=== PATIENT | female | born 1985 | race Hispanic/Latino ===

== ENCOUNTER 2017-11-14 11:13 | Day surgery (SDC) | payer MEDICAID, OTHER, SELFPAY ==
--- NOTE | 2017-11-14 11:29 | PDOC.EVN ---
Event Note - Event Note Event Note: HISTORY AND PHYSICAN ED Trauma Bed 1 time of eval at bedside: 1110 [facility] Patient Residents aware HPI: I arrived to ED bed 1 with Brisa (our RN) and Jony (our DINKEY ENGINE FIRER/FIREMAN) to see that patient for "delivery". She is a 32 yo H with EDC 01/04/18 at around 33 weeks by dates. Here for pelvic pain, no VB, no LOF Review of systems: on and of contractions, no GDM HX, no PIH Hx. States CTX every 7 minutes for couple hours Meds: none Allergies: none Surgeries: none OBHX: X5 at term PHYSICAL: NAD A&A X3 Ut gravid Cervix by me: /3 Bedside sono in process Assessment and plan: Threatened PTL... I checked cervix already so no FFN We will: 1. get sono for EGA 2. NICU aware 3. IVFs 4. Celestone 5. Monitors 6. Dr Cristian Rushing with me at bedside
--- NOTE | 2017-11-14 11:35 | PDOC.EVN ---
Event Note - Event Note Event Note: EFW by sono 2056 grams, sephalic, good cardiac Motion. RUDI 8.1 To L&D
--- NOTE | 2017-11-14 12:06 | PDOC.EVN ---
Event Note - Event Note Event Note: Patient now in L&D L&D note: OBGYN Faculty: LIANNE Cordova reviewed with Dr Valero. FAVIOLA Astudillo..treated with neg CESILIA Cervical length sono not performed as effacement called 50% by my exam already. Monitor for now. Celestone if evidence progressive cervical change or persistent regular contractions.
[2017-11-14] MEDS: Lactated Ringer's 1,000 ML IV SCH ×2 (12:09→13:00)
[2017-11-14 12:41] VITALS: BMI 29.5
[2017-11-14 13:09] VITALS: BP 123/77; TEMP 99.1
[2017-11-14 13:49] LABS: Bilirubin Negative (Negative); Blood, Urine Negative (Negative); Clarity CLEAR (Clear); Glucose, Urine (Dipstick) Negative (Negative); Leukocyte Negative (Negative); Nitrite Negative (Negative); Protein, Urine (Dipstick) Negative (Neg-Trace); Specific Gravity, Urine 1.006 (1.002-1.036); Urobilinogen 0.2 mg/dL (0.2-1.0)
[2017-11-14 13:51] LABS: Bacteria/HPF None Seen HPF (None Seen); Hyaline Casts/LPF 0-3 HYALINE CAST LPF (0-3 Hyaline); RBC/HPF None Seen HPF (0-3); Squamous Epithelial 0-3 HPF (0-3); WBC/HPF None Seen HPF (0-3)
--- NOTE | 2017-11-14 14:11 | PDOC.EVN ---
Event Note - Event Note Event Note: OBGYN L&D note: UA clear. Dr Valero to recheck cervix now still with contractions every 5 minutes or so despite IVF hydration
[2017-11-14] MEDS ORDERED: Butorphanol Tartrate 1 MG/ML VIAL SLOW IVP PRN (14:15)
[2017-11-14] MEDS ORDERED: Promethazine HCl 25 MG/ML VIAL IM/IV PRN (14:16)
--- NOTE | 2017-11-14 16:14 | PDOC.EVN ---
Event Note - Event Note Event Note: OBGYN Faculty DISCHARGE NOTE Location: L&D Patient was admitted to L&D at approx 1130 for suspected labor at 33weeks by dates. She is a , seen at the clinic, with lower pelvic pressure. Denies LOF, VB, CAO. Good FM. Armenian speaking only. I evaluated the patient in the ED along with our cleaning staff supervisor. Cervix was 1/50/-3 by my check. Bedside sono by department revealed S=D with EFW of 2000grams, RUDI 8. No evidence active labor noted in ED. We observed her in L&D for 5 hours with no cervical progression. [place] revealed less contractions after IVFs and sedation. I performed a final cerevical check at 1610 and cervix still posterior, 1 50/-3. UA was negative. FFN not sent as cervix checked first in ED to r/o eminent delivery. Steroids not given as no real evidence of labor. FHTs reactive, cat 1 Vitals stable DX: discomforts of Threatened labor
--- NOTE | 2017-11-14 17:27 | ULT ---
OB ULTRASOUND: 11/14/17 HISTORY: Premature labor at 33 weeks. Evaluate amniotic fluid volume and weight as well as present ation. FINDINGS: There is a single intrauterine gestation in cephalic presentation. Cardiac doppler demonstrates feta l heart tones with a heart rate of 135 beats per minute. There is significant shadowing from th e head which limits evaluation of the head as well as lower uterine segment. Cervix is un able to be evaluated on this exam. The placenta is located posteriorly and fundally. Given significan t shadowing in the lower uterine segment, leading edge of the placenta is not well imaged but given t hat the placenta is located predominantly within the fundus of the uterus, there is no definite findi ngs to suggest placenta previa. The amniotic fluid volume is at the lower limits of normal with an am niotic fluid index of 8.1 cm. MEASUREMENTS: The head is not well visualized to evaluate for head circumference and biparietal diameter. However, measurements are as follows: Biparietal diameter 8.43 cm, 34 weeks. Head circumference 29.99 cm, 33 weeks, 1 day. Abdominal circumference 28.62 cm, 32 weeks, 4 days. Femur length 6.32 cm, 32 weeks, 5 days. Estimated gestational age by ultrasound is 33 weeks with an JAS on 01/02/18. Gestational age by last m enstrual period is 32 weeks, 5 days. Estimated weight by ultrasound is 2056 grams (4 lb. 9 oz.). This represents 43 percentile for f etal weight. This was examination was not performed for evaluation of the anatomical structures. IMPRESSION: 1. Limited evaluation of the lower uterine segment due to gestational age and shadowing from fet al head. However, there is a single intrauterine gestation in cephalic presentation with heart tones documented. 2. Estimated gestational age by ultrasound is 33 weeks with an JAS on 01/02/18. head is not well seen for more accurate measurements. 3. Estimated weight by ultrasound is 2056 grams (4 lb., 9 oz.). 4. Amniotic fluid index is 8.1 cm. POS: [facility]
[2017-11-15] MEDS ORDERED: Prenatal Vitamin 1 TAB PO SCH (09:00)
== END 2017-11-14 18:00 | disposition home or self-care (01) ==
LOC: L&D/OP 11:13 → ER/OP 18:00
PROVIDERS: ATTEND Obstetrics & Gynecology
DX: O60.03 Preterm labor without delivery, third trimester (principal); O99.013 Anemia complicating pregnancy, third trimester; Z3A.32 32 weeks gestation of pregnancy
CPT/HCPCS: 51701; 76815; 81001; 96360; 96361; 96372; 96375; 99284; J0595; J2550

== ENCOUNTER 2017-12-21 14:03 | Day surgery (SDC) | payer OTHER ==
[2017-12-21 14:41] VITALS: BP 117/58; TEMP 98.7
--- NOTE | 2017-12-21 15:40 | PDOC.EVN ---
Event Note - Event Note Event Note: Faculty H&P Time of encounter 1520 Patient of the [facility] [place] patient first assessed by Dr Cristian Valero Here for suspected contractions at 38 weeks HPI: 32 yo at 38 weeks with EDC of 01/04/18. She was seen earlier this in the ED for suspected "complete dilation" but was not, and was sent home. She is now 38 weeks. Stats contractions every 15 minutes, but no LOF, no ROM, no VB, no trauma. Good FM Review of Systems: complete ROS completed and negative except for HPI OB Hx: ..Elab 1 Sab1 All No CS Surgical: appy Allergies: none Physical: BP 116/70 pulse 90s NAD Ut NT S=D Cervix: 3/80/-2 Monitoring: Cat 1 /reactive, baseline [place]: irregular every 6-10 minutes Assessment/plan: 1. 1. Latent labor 2. Grand multiparous 3. Recheck in 2 hours 4. OK for ambulation
--- NOTE | 2017-12-21 16:10 | PDOC.LDHP ---
Labor and Delivery H&P Chief complaint: contractions HPI: 32 yo @ 32.5 wks by 22.1wk with EDC 01/04/2018 who presents with contractions every 9 minutes since this morning at 0600. Denies VB, LOF, vaginal discharge. Endorses good movement. Current gestational age (weeks): 38 Due date: 01/04/18 Grav: 8 Para: 5 ([id number]) OB History Details: US hx: 2nd Tri US wnl OB hx: 5 term NSVDs, no hx of deliveries 2 miscarriages Current complications: other (Anemia of , hx of chlamydia with CESILIA 10/2017, and glucose intolerance) Abnormal US findings: No (43% by [place] 3T US) Past Medical History: Anemia of , hx of chlamydia with CESILIA 10/2017, and an abnormal 3 hr GTT. Current medications: none Previous surgical history: appendectomy Allergies/Adverse Reactions: Allergies Allergy/AdvReac Type Severity Reaction Status Date / Time No Known Allergies Allergy Verified 03/01/13 18:21 Social history: none - Physical Exam Vital signs reviewed and normal: yes General: NAD, resting, breathing through contractions Heart: RRR Lungs: CTAB Abdomen: gravid Extremeties: no edema FHT: category 1 [place] contractions every: 6-9 - Vaginal Exam cm dilated: 3 Effacement: 90% Station: -2 - OB Labs Blood type: O RH: positive Antibody Screen: negative HIV: negative RPR: negative HEPSAg: negative 1 hour GCT: positive (142) GBS: negative Rubella: immune Additional Labs: chlamydia negative 10/20/2017 gonorrhea 10/20/2017 urine cx: negative 10/20/2017 H/H 9.7/29.8 10/20/2017 - Assessment 32 yo @ 32.5 wks by 22.1wk with EDC 01/04/2018 who presents with contractions, in latent labor, admitted to obs to assess for cervical change. 1. sIUP, Latent labor 2. Grandmultiparous 3. Anemia of 4. Glucose intolerance 5. Late to PNC 6. Hx of chlamydia, CESILIA 10/2017 Plan: -Observe in L&D for 2-3 hours. Reassess for cervical change after 2-3 hours. Pt can ambulate as tolerated. Will continue to monitor on NST. -If no cervical change, will discharge pt in latent labor with labor precautions
--- NOTE | 2017-12-21 16:45 | PDOC.EVN ---
Event Note - Event Note Event Note: 32 yo @ 38wks by 22.1wk US with EDC 01/04/2018 who presented with contractions, now without cervical change after 2 hours of observation. NST reactive, not currently jordy regularly. Labor precautions given. Pt has apt at [facility] next week on 12/26. Okay to discharge. Dr. Krause at bedside during evaluation. <Haritha Nelson - Last Filed: 12/21/17 16:45> - Event Note Event Note: Faculty note: seen at bedside with Dr Valero. Cleared for outpatient follow up. NST reactive. <Vance Krause - Last Filed: 12/21/17 16:56>
== END 2017-12-21 17:01 | disposition home or self-care (01) ==
LOC: L&D/OP 14:03
PROVIDERS: ATTEND Family Medicine
DX: O47.1 False labor at or after 37 completed weeks of gestation (principal); Z3A.38 38 weeks gestation of pregnancy
CPT/HCPCS: 99283

== ENCOUNTER 2018-01-05 12:26 | Inpatient (IN) | payer OTHER, SELFPAY ==
[~2018-01-05 12:26] MED LIST: Lidocaine 2% PF Inj 2 ML VIAL ONE; Terbutaline Sulfate 1 MG/ML VIAL ONE
[2018-01-05] MEDS: Lactated Ringer's 1,000 ML IV SCH ×3 (13:00→18:10)
[2018-01-05 13:19] VITALS: BMI 27.9
--- NOTE | 2018-01-05 13:50 | PDOC.LDHP ---
Labor and Delivery H&P Chief complaint: contractions HPI: 32 y/o at 40w1d here with ctx. Denies Vb, LOF, or decreased FM. Denies other complaints. ROS neg for HEENT, cv, pulm, gi, gu, neuro, psych, skin, musculoskeletal or constitutional symptoms other than mentioned above. OB History Details: 5 prior SVDs Current complications: none Past Medical History: None Previous surgical history: none Allergies/Adverse Reactions: Allergies Allergy/AdvReac Type Severity Reaction Status Date / Time No Known Allergies Allergy Verified 03/01/13 18:21 Social history: none - Physical Exam Vital signs reviewed and normal: yes General: NAD, resting Lungs: nonlabored breathing Abdomen: gravid Extremeties: no edema FHT: category 2 (140s, mod variability, + accels, late decel on presentation, now resolved) [place] contractions every: 5 - Vaginal Exam cm dilated: 4 Effacement: 50% Station: -2 - OB Labs Blood type: O RH: positive Antibody Screen: negative HIV: negative RPR: negative HEPSAg: negative 1 hour GCT: negative GBS: negative Rubella: non-immune - Assessment L&D Assessment: term patient in labor - Plan Plan: admit to L&D, labor augmentation if indicated, informed consent obtained, anesthesia consult for pain management (if desired) -: Patient with late decels upon presentation but have improved with resuscitation. As patient is term, will admit for delivery with augmentation as needed. Anticipate .
--- NOTE | 2018-01-05 13:54 | PDOC.LDPN ---
Labor & Delivery Progress Note - Subjective Subjective: painful contractions - Objective Vital signs reviewed and normal: yes General: NAD, breathing through contractions Uterine fundus: non tender FHT: category 1 AROM: clear fluid Plan: continue plan of care
[2018-01-05] MEDS ORDERED: Promethazine HCl 25 MG/ML VIAL IM PRN ×2 (14:10→18:44)
[2018-01-05] MEDS ORDERED: Ondansetron HCl/PF 4 MG/2 ML Vial IVP PRN ×2 (14:10→18:44)
[2018-01-05] MEDS ORDERED: Lidocaine 1% (PF) 30 ML VIAL SC PRN (14:10)
[2018-01-05 15:17] LABS: Hemoglobin 10.6 g/dL (12.0-16.0); Mean Corpuscular HGB CONC 33.6 g/dL (32.0-36.0); Mean Corpuscular Hemoglobin 25.4 pg (27.0-31.0); Mean Corpuscular Volume 75.6 fL (78.0-98.0); Mean Platelet Volume 10.3 fL (7.4-10.4); Platelet Count 184 thou/uL (130-400); Red Blood Cell (RBC) Count 4.17 mill/uL (4.20-5.40)
[2018-01-05 15:58] LABS: Syphilis Antibody Nonreactive (Nonreactive); Syphilis Antibody Index 0.04 S/CO (<1.00 Non-Reactive)
[2018-01-05 15:59] LABS: HBSAg Index 0.18 S/CO (0-0.99); Hep B Surf Ag Non-Reactive S/CO (NonReactive)
[2018-01-05] MEDS ORDERED: Bupivacaine 0.5% 20 ML, fentaNYL Citrate/PF 400 MCG in Sodium Chloride 0.9% 72 ML EPIDURAL SCH (16:00)
[2018-01-05] MEDS ORDERED: NS w/ Oxytocin 10 units 500 ML IV SCH (17:15)
[2018-01-05] MEDS ORDERED: ePHEDrine/0.9% NaCl/PF SYRINGE 50 mg/10 ml SLOW IVP PRN (18:44)
[2018-01-05] MEDS ORDERED: Eucerin (Mineral Oil/Petrolatum,White) 30 gm Jar TOP PRN (18:44)
[2018-01-05] MEDS ORDERED: Naloxone HCl 0.4 mg/ml Vial IVP PRN ×2 (18:44)
[2018-01-05] MEDS ORDERED: diphenhydrAMINE 50 MG/ML VIAL IVP PRN (18:44)
[2018-01-05] MEDS ORDERED: Lactated Ringer's 500 ML IV PRN (18:44)
[2018-01-05] MEDS ORDERED: Acetaminophen 325 MG TAB PO PRN (18:44)
[2018-01-05] MEDS ORDERED: Communication Order-Pharmacy FS SCH (18:45)
[2018-01-05] MEDS ORDERED: fentaNYL Citrate/PF 400 MCG, Bupivacaine 0.5% 20 ML in Sodium Chloride 0.9% 72 ML EPIDURAL SCH (18:45)
--- NOTE | 2018-01-05 19:21 | PDOC.LDPN ---
Labor & Delivery Progress Note - Subjective Subjective: comfortable, no concerns - Objective Vital signs reviewed and normal: yes General: NAD, breathing through contractions Uterine fundus: non tender Dilation: 6 Effacement: 75% Station: -1 FHT: category 1 (baseline 140, moderate variability, accelx1, no decels ) [place] contractions every: 2-3 mins Procedures: epidural placed AROM: clear fluid - Assessment (1) Normal Code(s): Z34.90 - ENCNTR FOR SUPRVSN OF NORMAL , UNSP, UNSP TRIMESTER Current Visit: No Status: Acute Comment: epidural providing pain control. Progressing without concern, continue pitocin per protocol. Plan: continue plan of care (recheck in 2 hours )
[2018-01-05] MEDS ORDERED: Misoprostol 200 MCG TAB ONE ×2 (20:20→20:51)
[2018-01-05] MEDS ORDERED: Methylergonovine 0.2 MG/ML VIAL ONE (20:21)
[2018-01-05] MEDS ORDERED: Carboprost 250 MCG/ML AMP ONE (20:22)
[2018-01-05] MEDS: NS / Oxytocin 40 units/1000ml 1,000 ML IV PRN ×2 (20:40→21:54)
[2018-01-05] MEDS: Misoprostol 100 MCG TAB ONE ×3 (20:41→20:43)
[2018-01-05] MEDS ORDERED: Misoprostol 100 MCG TAB ONE (20:51)
[2018-01-05] MEDS ORDERED: Bisacodyl 10 MG SUPP PR PRN (22:59)
[2018-01-05] MEDS ORDERED: Milk Of Magnesia 30 ML UDCUP PO PRN (22:59)
[2018-01-05] MEDS ORDERED: Misoprostol 200 MCG TAB VAG PRN (22:59)
[2018-01-05] MEDS ORDERED: NS / Oxytocin 40 units/1000ml 1,000 ML IV SCH (22:59)
[2018-01-05] MEDS ORDERED: Ibuprofen 800 MG TAB PO SCH (23:15)
[2018-01-05] MEDS ORDERED: Docusate Calcium (SURFAK) 240 MG CAP PO SCH (23:15)
--- NOTE | 2018-01-06 07:22 | PDOC.PP ---
Post Progress Note Post Day #: 1 Subjective: Denies pain. Breast feeding well. no concerns. PO intake tolerated: yes Flatus: no Ambulation: yes Vital Signs (12 hours) Temp Pulse Resp BP 01/06/18 04:08 97.9 F 69 18 100/56 L 01/06/18 00:40 98.8 F 87 18 100/50 L 01/05/18 23:50 99.5 F 95 18 112/59 L 01/05/18 22:51 99.3 F 73 18 114/62 01/05/18 20:00 98.4 F 86 20 Weight Weight 64.864 kg - Physical Examination General: NAD Cardiovascular: no m/r/g, RRR Respiratory: clear to auscultation bilaterally, non-labored breathing Abdominal: + bowel sounds, lochia, appropriately TTP Fundus firm & at: 2 cm below umbilicus Extremities: negative homans (B) Perineum: mild edema Neurological: no gross focal deficits Psychiatric: A&Ox3, normal affect Result Diagrams: 01/05/18 13:17 Additional Labs: Post Labs Blood Type O POSITIVE 01/05/18 13:17 Hep Bs Antigen Non-Reactive S/CO (NonReactive) 01/05/18 13:17 (1) 39 weeks gestation of Code(s): Z3A.39 - 39 WEEKS GESTATION OF Status: Acute Comment: 32 yo delivered @ 40.1 wk via complicated by shoulder dystocia. VSS. pain controlled. expectant management at this time. likely d/c tomorrow morning. Care discussed with Dr. Edouard (2) Shoulder dystocia during labor and delivery, delivered Code(s): O66.0 - OBSTRUCTED LABOR DUE TO SHOULDER DYSTOCIA Status: Acute <Yohan Bocanegra - Last Filed: 01/06/18 07:20> Vital Signs (12 hours) Temp Pulse Resp BP Pulse Ox 01/07/18 09:06 97.5 F L 67 16 108/59 L 95 01/07/18 08:00 98.5 F 77 16 Weight Weight 143 lb Result Diagrams: 01/05/18 13:17 Additional Labs: Post Labs Blood Type O POSITIVE 01/05/18 13:17 Hep Bs Antigen Non-Reactive S/CO (NonReactive) 01/05/18 13:17 <Krupa Edouard - Last Filed: 01/07/18 10:56> Attending Addendum - Attending Addendum Date/Time: 01/07/18 9400 I personally evaluated the patient and discussed the management with Dr. Bocanegra. I agree with the History, Examination, Assessment and Plan documented above. <Krupa Edouard - Last Filed: 01/07/18 10:56>
[2018-01-06] MEDS ORDERED: Adacel (T-DAP) 0.5 ML VIAL IM ONE (09:00)
[2018-01-06] MEDS: Ferrous Sulfate 325 MG TAB PO SCH ×2 (09:48→18:46)
[2018-01-06] MEDS: Docusate Calcium (SURFAK) 240 MG CAP PO SCH ×2 (09:49→20:37)
[2018-01-06] MEDS: Ibuprofen 800 MG TAB PO SCH ×3 (14:23→20:37)
[2018-01-06] MEDS: Acetaminophen 500 MG TAB PO PRN (22:19)
[2018-01-07] MEDS: Acetaminophen 500 MG TAB PO PRN (04:30)
[2018-01-07] MEDS: Ibuprofen 800 MG TAB PO SCH (04:31)
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
--- NOTE | 2018-01-07 07:27 | PDOC.PP ---
Post Progress Note Post Day #: 2 Subjective: doing well. would like to go home. no concerns. PO intake tolerated: yes Flatus: yes Ambulation: yes Vital Signs (12 hours) Temp Pulse Resp BP 01/06/18 20:00 98.5 F 77 16 107/59 L Weight Weight 64.864 kg - Physical Examination General: NAD Cardiovascular: no m/r/g, RRR Respiratory: clear to auscultation bilaterally, non-labored breathing Abdominal: + bowel sounds, lochia, no distention, appropriately TTP Extremities: negative homans (B) Neurological: no gross focal deficits Psychiatric: A&Ox3, normal affect Result Diagrams: 01/05/18 13:17 Additional Labs: Post Labs Blood Type O POSITIVE 01/05/18 13:17 Hep Bs Antigen Non-Reactive S/CO (NonReactive) 01/05/18 13:17 (1) 39 weeks gestation of Code(s): Z3A.39 - 39 WEEKS GESTATION OF Status: Acute Comment: 32 yo delivered @ 40.1 wk via complicated by shoulder dystocia. VSS. pain controlled. expectant management at this time. likely d/c today. Care discussed with Dr. Oliveira. (2) Shoulder dystocia during labor and delivery, delivered Code(s): O66.0 - OBSTRUCTED LABOR DUE TO SHOULDER DYSTOCIA Status: Acute <Yohan Bocanegra - Last Filed: 01/07/18 07:26> Vital Signs (12 hours) Temp Pulse Resp BP Pulse Ox 01/07/18 09:06 97.5 F L 67 16 108/59 L 95 Weight Weight 143 lb Result Diagrams: 01/05/18 13:17 Additional Labs: Post Labs Blood Type O POSITIVE 01/05/18 13:17 Hep Bs Antigen Non-Reactive S/CO (NonReactive) 01/05/18 13:17 <Fred Oliveira - Last Filed: 01/07/18 20:34> Attending Addendum - Attending Addendum Date/Time: 01/07/182033 I personally evaluated the patient and discussed the management with Dr. Bocanegra I agree with the History, Examination, Assessment and Plan documented above with any addition or exceptions noted below. <Fred Oliveira - Last Filed: 01/07/18 20:34>
[2018-01-07 09:07] VITALS: BP 108/59; TEMP 97.5
[2018-01-07] MEDS: Ferrous Sulfate 325 MG TAB PO SCH (09:20)
[2018-01-07] MEDS: Docusate Calcium (SURFAK) 240 MG CAP PO SCH (09:21)
[2018-01-07] MEDS ORDERED: Measles/Mumps/Rubella 10 MCG/0.5 ML VIAL SC ONE (12:45)
--- NOTE | 2018-01-08 12:49 | DN-2 ---
DELIVERY NOTE DATE OF SERVICE: 01/05/2018 DELIVERING RESIDENTS: Hector Escudero DO and Yohan Bocanegra MD ATTENDING: Krupa Edouard MD PROCEDURE: Normal spontaneous vaginal delivery. ESTIMATED BLOOD LOSS: 300 mL ANESTHESIA: Epidural. INDICATIONS: Ms. Lolita Fuentes is a 32-year-old -0-2-5 at 40.1 weeks, dated by a 22.1 week ultrasound, who presented to Labor and Delivery in spontaneous labor. DELIVERY NOTE: This is a 32-year-old -0-2-5 at 40.1 weeks who delivered a viable male at 2038 hours on 01/05/2018. Following an antepartum course , a vigorous male was delivered over intact perineum in the occiput anterior position. A shoulder dystocia occurred while delivering remainder of the body and was reduced using Wesley maneuver and suprapubic pressure for approximately 30 seconds. No nuchal cord was noted. The cord was cut and clamped and the infant was urgently taken to the resuscitative team. The became vigorous after a few seconds of stimulation. A cord gas segment was obtained. A quantitative blood loss was not performed due to a precipitous delivery of the placenta shortly after the cord gas segment was obtained. Placenta was delivered intact with a 3-vessel cord noted. Fundal massage was performed and fundus was noted to be firm. Lower uterine segment was swept and cleared of clots. The cervix and vagina were inspected and noted to be free of lacerations. went to the nursery in good condition for routine care. Apgars were 8 and 8 at 1 and 5 minutes respectively. The patient tolerated delivery well and went to the unit after routine recovery and care. Dr. Edouard was present for the entire delivery. [facility]
== END 2018-01-07 13:15 | disposition home or self-care (01) | DRG 775 ==
LOC: L&D/OP 12:26 → L&D 13:31 → 3SW 22:51
PROVIDERS: ADMIT Obstetrics & Gynecology; ATTEND Obstetrics & Gynecology
PROC: 10E0XZZ Delivery of Products of Conception, External Approach (ICD-10-PCS; principal; 2018-01-05)
DX: O66.0 Obstructed labor due to shoulder dystocia (principal); Z3A.40 40 weeks gestation of pregnancy; Z37.0 Single live birth; Z91.419 Personal history of unspecified adult abuse
CPT/HCPCS: 51702; 85027; 86780; 86850; 86900; 86901; 87340; 90707; 99285; J2001; J2210; J3010; J3105; J3490; J7050

== ENCOUNTER 2018-04-27 09:17 | Emergency (ER) | payer OTHER, SELFPAY ==
[2018-04-27] MEDS ORDERED: Dexamethasone 4 mg/ml Vial ONE (09:32)
[2018-04-27] MEDS ORDERED: Sodium Chloride For Inhalation 0.9% 3 ML NEB ONE ×2 (09:41→09:48)
[2018-04-27 09:49] LABS: #Eosinphils 0.1 thou/uL (0.0-0.7); #Lymphocytes 1.6 thou/uL (1.20-3.40); #Monocytes 0.6 thou/uL (0.11-0.59); #Neutrophils 4.2 thou/uL (1.40-6.50); %Basophils 0.2 % (0.0-1.0); %Eosinophils 0.9 % (0.0-10.0); %Lymphocytes 24.3 % (21.0-51.0); %Monocytes 8.8 % (0.0-10.0); %Neutrophils 65.8 % (42.0-75.0); Hemoglobin 14.4 g/dL (12.0-16.0); Mean Corpuscular HGB CONC 33.7 g/dL (32.0-36.0); Mean Corpuscular Hemoglobin 28.3 pg (27.0-31.0); Mean Platelet Volume 9.1 fL (7.4-10.4); Platelet Count 259 thou/uL (130-400); RBC Distribution Width 14.1 % (11.5-14.5); Red Blood Cell (RBC) Count 5.11 mill/uL (4.20-5.40); White Blood Cell (WBC) Count 6.4 thou/uL (4.8-10.8)
[2018-04-27 09:57] LABS: BHCG - Serum Negative (NEGATIVE); Pregs Control Background? CLEAR/WHITE (CLR/WHITE); Pregs Control Bar Appear? YES (CONTROL BAR)
[2018-04-27 10:11] LABS: ALT (SGPT) 44 U/L (8-55); AST (SGOT) 33 U/L (5-34); Albumin 4.5 g/dL (3.5-5.0); Alkaline Phosphatase 159 U/L (40-150); Anion Gap 15 mmol/L (10-20); BUN (Urea Nitrogen) 12 mg/dL (7.0-18.7); Bilirubin, Total 0.4 mg/dL (0.2-1.2); Calc. Creatinine Clearance 0 mL/min (70-130); Calcium 9.6 mg/dL (7.8-10.44); Carbon Dioxide 19 mmol/L (22-29); Chloride 110 mmol/L (98-107); Estimated GFR-MDRD 86; Globulin 3.8 g/dL (2.4-3.5); Glucose 124 mg/dL (70-105); Potassium 3.7 mmol/L (3.5-5.1); Protein, Total 8.3 g/dL (6.0-8.3); Sodium 140 mmol/L (136-145)
--- NOTE | 2018-04-27 10:25 | RAD ---
RADIOGRAPH CHEST 1 VIEW: HISTORY: 32-year-old female with dyspnea. FINDINGS: The visualized lung johnson are clear. The cardiomediastinal silhouette and hilar shadows are normal. The lateral costophrenic angles are sharp. The osseous structures appear normal. There is no pneu mothorax. IMPRESSION: Negative. gonzalo POS: [facility]
--- NOTE | 2018-04-27 10:29 | RAD ---
RADIOGRAPH NECK SOFT TISSUES 1 VIEW: DATE: 04/27/2018. TIME: 9:40 a.m. HISTORY: A 32-year-old female with stridor. FINDINGS: A single lateral view demonstrates normal thickness of the epiglottis. No definite prevertebral soft tissue thickening. A CT of the neck would be more sensitive for the detection of airway narrowing a nd laryngeal abnormalities than plain radiograph. IMPRESSION: Negative. POS: [facility]
== END 2018-04-27 12:29 | disposition home or self-care (01) ==
LOC: ERS 09:17
DX: J06.9 Acute upper respiratory infection, unspecified (principal)
CPT/HCPCS: 70360; 71045; 80053; 84703; 85025; 87081; 87430; 87804; 94640; 96374; J1100

== ENCOUNTER 2019-07-31 12:34 | Emergency (ER) | payer SELFPAY ==
[2019-07-31 12:52] LABS: #Eosinphils 0.1 thou/uL (0.0-0.7); #Lymphocytes 2.4 thou/uL (1.20-3.40); #Monocytes 0.4 thou/uL (0.11-0.59); #Neutrophils 4.1 thou/uL (1.40-6.50); %Basophils 0.3 % (0.0-1.0); %Eosinophils 1.1 % (0.0-10.0); %Lymphocytes 34.1 % (21.0-51.0); %Monocytes 5.7 % (0.0-10.0); %Neutrophils 58.8 % (42.0-75.0); Hemoglobin 14.2 g/dL (12.0-16.0); Mean Corpuscular HGB CONC 33.5 g/dL (32.0-36.0); Mean Corpuscular Hemoglobin 29.5 pg (27.0-31.0); Mean Corpuscular Volume 88.2 fL (78.0-98.0); Mean Platelet Volume 8.7 fL (7.4-10.4); Platelet Count 273 thou/uL (130-400); RBC Distribution Width 11.4 % (11.5-14.5)
[2019-07-31 12:59] LABS: BHCG - Serum Negative (NEGATIVE); Pregs Control Background? CLEAR/WHITE (CLR/WHITE); Pregs Control Bar Appear? YES (CONTROL BAR)
[2019-07-31] MEDS ORDERED: Ondansetron PF 4 MG/2 ML Vial ONE (13:05)
[2019-07-31] MEDS ORDERED: Acetaminophen 500 MG TAB ONE (13:05)
[2019-07-31 13:20] LABS: ALT (SGPT) 20 U/L (8-55); AST (SGOT) 16 U/L (5-34); Albumin 4.5 g/dL (3.5-5.0); Alkaline Phosphatase 113 U/L (40-110); Anion Gap 15 mmol/L (10-20); BUN (Urea Nitrogen) 16 mg/dL (7.0-18.7); Bilirubin, Total 0.8 mg/dL (0.2-1.2); Calc. Creatinine Clearance 0 mL/min (70-130); Calcium 9.4 mg/dL (7.8-10.44); Carbon Dioxide 23 mmol/L (22-29); Chloride 103 mmol/L (98-107); Estimated GFR-MDRD Greater than 90; Globulin 3.4 g/dL (2.4-3.5); Glucose 118 mg/dL (70-105); Potassium 3.5 mmol/L (3.5-5.1); Protein, Total 7.9 g/dL (6.0-8.3); Sodium 137 mmol/L (136-145)
--- NOTE | 2019-07-31 13:26 | RAD ---
PORTABLE CHEST 1 VIEW: Date: 07/31/2019 Time: 1245 hours HISTORY: Shortness of breath, fever, cough. FINDINGS: Comparison made with exam of 04/27/2018. The heart size is normal. The lungs are well expanded without lobar consolidation, pneumothoraces, or pleural effusions. IMPRESSION: No radiographic evidence of acute cardiopulmonary process. POS: [facility]
[2019-07-31] MEDS ORDERED: cefTRIAXone\\ROCEPHIN 2 GM VIAL ONE (13:37)
[2019-07-31] MEDS ORDERED: Azithromycin 500 MG VIAL ONE (13:38)
[2019-07-31 13:49] LABS: Bilirubin Negative (Negative); Blood, Urine 2+ (Negative); Clarity Clear (Clear); Glucose, Urine (Dipstick) Normal (Negative); Leukocyte Negative Leu/uL (Negative); Nitrite Negative (Negative); Pregnancy Test - Urine (BHCG) Negative (Negative); Pregu Control Background? CLEAR/WHITE (CLR/WHITE); Pregu Control Bar Appear? YES (CONTROL BAR); Protein, Urine (Dipstick) Negative (Neg-Trace); RBC/HPF 0-3 HPF (0-3); Specific Gravity 1.005 (1.002-1.036); Squamous Epithelial 0-3 HPF (0-3); Urobilinogen Normal mg/dL (Less than 2); WBC/HPF 0-3 HPF (0-3)
[2019-07-31 13:50] LABS: Bacteria/HPF 1+ HPF (None Seen)
[2019-07-31] MEDS ORDERED: diphenhydrAMINE 50 MG/ML VIAL ONE (14:11)
[2019-07-31] MEDS ORDERED: Ketorolac Tromethamine 30 MG/ML VIAL ONE (15:12)
== END 2019-07-31 16:18 | disposition home or self-care (01) ==
LOC: ERS 12:34
DX: J20.9 Acute bronchitis, unspecified (principal); B34.9 Viral infection, unspecified; R11.2 Nausea with vomiting, unspecified
CPT/HCPCS: 36415; 71045; 80053; 81003; 81015; 81025; 83605; 84703; 85025; 87040; 87633; 87804; 94760; 96361; 96365; 96367; 96375; J0456; J0696; J1200; J1885; J2405

== ENCOUNTER 2019-08-05 15:13 | Emergency (ER) | payer OTHER ==
--- NOTE | 2019-08-05 15:50 | RAD ---
Chest one view HISTORY: Dyspnea. Fever. COMPARISON: 07/31/2019. FINDINGS: Cardiac silhouette is magnified by projection. Pulmonary vasculature is unremarkable. Media stinum is midline. No confluent airspace consolidation or evidence of pneumothorax. equipment monitor phototypesetting leads overlie the chest. IMPRESSION : Normal exam.
== END 2019-08-05 17:41 | disposition home or self-care (01) ==
LOC: ERS 15:13
DX: R50.9 Fever, unspecified (principal); R05 Cough; J45.909 Unspecified asthma, uncomplicated; Z79.51 Long term (current) use of inhaled steroids
CPT/HCPCS: 71045; U0001

== ENCOUNTER 2022-09-13 15:56 | Emergency (ER) | payer SELFPAY ==
[2022-09-13 16:41] LABS: #Eosinphils 0.1 thou/uL (0.0-0.7); #Monocytes 0.4 thou/uL (0.11-0.59); %Basophils 0.4 % (0.0-1.0); %Eosinophils 1.4 % (0.0-10.0); %Lymphocytes 30.6 % (21.0-51.0); %Neutrophils 61.5 % (42.0-75.0); Hemoglobin 13.1 g/dL (12.0-16.0); Mean Corpuscular HGB CONC 34.3 g/dL (32.0-36.0); Mean Corpuscular Hemoglobin 30.1 pg (27.0-31.0); Mean Corpuscular Volume 87.9 fl (78.0-98.0); Mean Platelet Volume 8.9 fL (7.4-10.4); Platelet Count 227 10x3/uL (130-400); RBC Distribution Width 10.6 % (11.5-14.5); Red Blood Cell (RBC) Count 4.36 mill/uL (4.20-5.40); White Blood Cell (WBC) Count 6.5 10x3/uL (4.8-10.8)
[2022-09-13 17:02] LABS: ALT (SGPT) 69 U/L (8-55); AST (SGOT) 40 U/L (5-34); Albumin 4.3 g/dL (3.5-5.0); Alkaline Phosphatase 102 U/L (40-110); Anion Gap 15 mmol/L (10-20); BUN (Urea Nitrogen) 9 mg/dL (7.0-18.7); Bilirubin, Total 0.8 mg/dL (0.2-1.2); Calc. Creatinine Clearance 0 mL/min (70-130); Carbon Dioxide 22 mmol/L (22-29); Chloride 102 mmol/L (98-107); Estimated GFR 114; Globulin 3.2 g/dL (2.4-3.5); Glucose 128 mg/dL (70-105); Protein, Total 7.5 g/dL (6.0-8.3); Sodium 136 mmol/L (136-145)
[2022-09-13 19:06] LABS: Pregnancy Test - Urine (BHCG) Negative (Negative); Pregu Control Background? CLEAR/WHITE (CLR/WHITE); Pregu Control Bar Appear? YES (CONTROL BAR); Specific Gravity 1.002 (1.002-1.036)
[2022-09-13 19:15] LABS: Amphetamine Not Detected (NotDetected); Barbiturates Screen Not Detected (NotDetected); Benzodiazepine Screen Not Detected (NotDetected); Cocaine Metabolite Screen Not Detected (NotDetected); Methadone Not Detected (NotDetected); Methamphetamine Not Detected (NotDetected); Opiate Screen Not Detected (NotDetected); Oxycodone Screen Not Detected (NotDetected); Phencyclidine (PCP) Not Detected (NotDetected); THC/Cannabinoid Screen Not Detected (NotDetected); Tricyclic Screen Not Detected (NotDetected)
[2022-09-13 19:23] LABS: Magnesium 1.8 mg/dL (1.6-2.6)
[2022-09-13 19:29] LABS: Troponin I Less than 0.010 ng/mL (< 0.028)
[2022-09-13] MEDS ORDERED: Metoclopramide HCl 10 MG/2 ML VIAL ONE (19:48)
== END 2022-09-13 21:23 | disposition home or self-care (01) ==
LOC: ERS 15:56
DX: R55 Syncope and collapse (principal)
CPT/HCPCS: 36415; 70450; 71045; 80053; 80306; 81025; 83735; 84484; 85025; 93005; 96361; 96365; J2765

== ENCOUNTER 2023-04-04 16:08 | Emergency (ER) | payer SELFPAY ==
[2023-04-04 17:25] LABS: #Eosinphils 0.3 thou/uL (0.0-0.7); #Monocytes 0.8 thou/uL (0.11-0.59); #Neutrophils 5.9 thou/uL (1.40-6.50); %Basophils 0.3 % (0.0-1.0); %Eosinophils 3.1 % (0.0-10.0); %Lymphocytes 28.3 % (21.0-51.0); %Monocytes 7.7 % (0.0-10.0); %Neutrophils 60.3 % (42.0-75.0); Hematocrit 38.5 % (36.0-47.0); Hemoglobin 13.2 g/dL (12.0-16.0); Mean Corpuscular HGB CONC 34.3 g/dL (32.0-36.0); Mean Corpuscular Hemoglobin 30.1 pg (27.0-31.0); Mean Corpuscular Volume 87.7 fl (78.0-98.0); Mean Platelet Volume 10.4 fL (7.4-10.4); Platelet Count 287 10x3/uL (130-400); Red Blood Cell (RBC) Count 4.39 mill/uL (4.20-5.40); White Blood Cell (WBC) Count 9.8 10x3/uL (4.8-10.8)
[2023-04-04 17:35] LABS: Bacteria/HPF None Seen HPF (None Seen); Bilirubin Negative (Negative); Blood, Urine Negative (Negative); CAUTI Indications for Culture Pelvic or flank pain; Clarity Clear (Clear); Glucose, Urine (Dipstick) Normal (Negative); Ketone, Urine Negative (Negative); Leukocyte Negative Leu/uL (Negative); Nitrite Negative (Negative); Protein, Urine (Dipstick) Negative (Neg-Trace); RBC/HPF 0-3 HPF (0-3); Specific Gravity, Urine 1.018 (1.002-1.036); Squamous Epithelial 0-3 HPF (0-3); Urobilinogen Normal mg/dL (Less than 2); WBC/HPF 0-3 HPF (0-3)
[2023-04-04 17:37] LABS: Pregnancy Test - Urine (BHCG) Negative (Negative); Pregu Control Background? CLEAR/WHITE (CLR/WHITE); Pregu Control Bar Appear? YES (CONTROL BAR); Specific Gravity 1.018 (1.002-1.036)
[2023-04-04 17:38] LABS: Urine Culture Reflex No No
[2023-04-04 17:49] LABS: ALT (SGPT) 50 U/L (8-55); AST (SGOT) 27 U/L (5-34); Albumin 4.5 g/dL (3.5-5.0); Alkaline Phosphatase 116 U/L (40-110); Anion Gap 13 mmol/L (10-20); BUN (Urea Nitrogen) 12 mg/dL (7.0-18.7); Bilirubin, Total 0.6 mg/dL (0.2-1.2); Calc. Creatinine Clearance 0 mL/min (70-130); Calcium 9.5 mg/dL (7.8-10.44); Carbon Dioxide 27 mmol/L (22-29); Chloride 105 mmol/L (98-107); Estimated GFR 115; Globulin 3.2 g/dL (2.4-3.5); Glucose 111 mg/dL (70-105); Potassium 3.7 mmol/L (3.5-5.1); Protein, Total 7.7 g/dL (6.0-8.3); Sodium 141 mmol/L (136-145)
[2023-04-04 17:52] LABS: Troponin I Less than 0.010 ng/mL (< 0.028)
[2023-04-04] MEDS ORDERED: Ketorolac Tromethamine 30 MG/ML VIAL ONE (19:54)
== END 2023-04-04 20:54 | disposition home or self-care (01) ==
LOC: EDBD 16:08 → ERS 16:08
DX: N61.1 Abscess of the breast and nipple (principal)
CPT/HCPCS: 36415; 71045; 80053; 81001; 81025; 84484; 85025; 93005; 96372; J1885

== ENCOUNTER 2024-02-15 08:53 | Emergency (ER) | payer OTHER, SELFPAY | END 2024-02-15 11:53 | disposition short-term general hospital (02) | LOC: ERS 08:53 | DX: O60.02 Preterm labor without delivery, second trimester (principal); Z3A.28 28 weeks gestation of pregnancy | CPT/HCPCS: 99284 ==